=== PATIENT | male | born 1970 | race Caucasian/White ===

== ENCOUNTER 2018-08-28 22:58 | Inpatient (IN) | payer MEDICAID ==
[~2018-08-28] VITALS: Ht 172.7 cm; Wt 69.0 kg
[~2018-08-28 22:58] MED LIST: stool softener; xanax
--- NOTE | 2018-08-28 23:11 | NUR ---
ASSESSMENT MADE. PA AT BEDSIDE. ASSISTED FOR RECTAL EXAM.
[2018-08-28] MEDS ORDERED: OMNIPAQUE 350 MG/ML, 100ML BOTTLE ONE (23:18)
[2018-08-28] MEDS ORDERED: HYDROmorphone 1 MG/ML, 1ML IV ONE (23:30)
[2018-08-28] MEDS ORDERED: HYDROmorphone 1 MG/ML, 1ML ONE (23:34)
[2018-08-28 23:45] LABS: ALANINE AMINOTRANSFERASE 16 U/L (12-78); ALBUMIN 3.1 g/dL (3.4-5.0); ANION GAP 7 mmol/L (5-15); CALCIUM 8.3 mg/dL (8.5-10.1); CHLORIDE 110 mmol/L (98-107)
[2018-08-28 23:48] LABS: ALKALINE PHOSPHATASE 80 U/L (45-117); BILIRUBIN,TOTAL 0.4 mg/dL (0.2-1.0); CREATININE 0.98 mg/dL (0.7-1.3); TOTAL PROTEIN 7.1 g/dL (6.4-8.2)
[2018-08-29 00:33] LABS: BASOPHILS # (AUTO) 0.05 x10^3/uL (0-0.1); BASOPHILS % (AUTO) 0 % (0-1); EOSINOPHILS # (AUTO) 0.03 x10^3/uL (0-0.4); EOSINOPHILS % (AUTO) 0 % (1-7); LYMPHOCYTES # (AUTO) 2.02 x10^3/uL (1-3.4); LYMPHOCYTES % (AUTO) 14 % (22-44); MD NO; MEAN CORPUSCULAR HEMOGLOBIN 27.3 pg (27.5-34.5); MEAN CORPUSCULAR HGB CONC 33.6 g/dL (33.2-36.2); MEAN CORPUSCULAR VOLUME 81.1 fL (81-97); MEAN PLATELET VOLUME 8.9 fL (7.4-10.4); MONOCYTES # (AUTO) 1.03 x10^3/uL (0.2-0.8); MONOCYTES % (AUTO) 7 % (2-9); NEUTROPHILS # (AUTO) 11.25 x10^3/uL (1.8-6.8); NEUTROPHILS % (AUTO) 78 % (42-75); PLATELET COUNT 215 x10^3/uL (130-400); RED BLOOD COUNT 4.04 x10^6/uL (4.38-5.82); RED CELL DISTRIBUTION WIDTH 18.4 % (9.4-14.8)
--- NOTE | 2018-08-29 00:33 | NUR ---
CALLED LAB TO CHECK ON CBC. THEY STATE IT IS RUNNING CURRENTLY.
[2018-08-29] MEDS ORDERED: HYDROmorphone 1 MG/ML, 1ML IV ONE (01:30)
[2018-08-29] MEDS ORDERED: HYDROmorphone 1 MG/ML, 1ML ONE (01:31)
--- NOTE | 2018-08-29 01:43 | NUR ---
PT UPSET ABOUT NPO STATUS AT THIS TIME. PT PROVIDED WITH MOUTH SWABS.
[2018-08-29] MEDS ORDERED: PIPERACILLIN/TAZO/PMX 3.375GM 50 ML IV ONE (02:00)
[2018-08-29] MEDS ORDERED: hydrALAzine 20 MG/ML, 1ML IVPush PRN (02:30)
[2018-08-29] MEDS ORDERED: CYCLOBENZAPRINE 10 MG TABLET PO PRN (02:30)
[2018-08-29] MEDS: NICOTINE 7 MG/24 HR PATCH.TD24 TD SCH (02:30)
[2018-08-29] MEDS ORDERED: ONDANSETRON 2MG/ML, 2ML IVPush PRN (02:30)
[2018-08-29] MEDS ORDERED: ONDANSETRON ODT 4 MG PO PRN (02:30)
[2018-08-29] MEDS ORDERED: PROMETHAZINE 25 MG/ML, 1ML IM PRN (02:30)
[2018-08-29] MEDS ORDERED: ACETAMINOPHEN 325 MG TABLET PO PRN (02:30)
[2018-08-29] MEDS ORDERED: OXYcodone/APAP 5/325MG TABLET PO PRN (02:30)
[2018-08-29] MEDS ORDERED: PIPERACILLIN/TAZO/PMX 3.375GM 50 ML ONE (02:31)
[2018-08-29] MEDS: SODIUM CHLORIDE 0.9% 1,000 ML IV SCH ×3 (02:43→22:04)
[2018-08-29 02:54] LABS: HEMOGLOBIN A1C 5.5 % (4.2-6.3)
[2018-08-29 02:58] LABS: FREE T4 (FREE THYROXINE) 1.37 ng/dL (0.76-1.46); THYROID STIMULATING HORMONE 4.24 mIU/L (0.358-3.740)
[2018-08-29 03:03] VITALS: BP 125/84
[2018-08-29] MEDS ORDERED: MORPHINE SULFATE 4 MG/ML, 1ML ONE (04:12)
[2018-08-29] MEDS: morphine SULFATE 10 MG/ML, 1ML IVPush PRN ×2 (04:15→06:26)
[2018-08-29] MEDS: PIPERACILLIN/TAZO/PMX 3.375GM 50 ML IV SCH ×3 (08:35→22:02)
[2018-08-29 08:37] VITALS: BP 118/60
[2018-08-29] MEDS: OxyconTIN ER 10 MG TAB.ER PO SCH ×2 (10:24→22:02)
[2018-08-29] MEDS: HYDROmorphone 2 MG/ML, 1ML IV PRN ×2 (12:37→19:41)
[2018-08-29 13:27] VITALS: BP 121/57
[2018-08-29 19:31] VITALS: BP 133/67
[2018-08-29] MEDS: ALPRazolam 1MG TABLET PO PRN (22:58)
[2018-08-30] MEDS: HYDROmorphone 2 MG/ML, 1ML IV PRN ×5 (01:46→19:57)
[2018-08-30 02:11] VITALS: BP 115/55
[2018-08-30] MEDS: NICOTINE 7 MG/24 HR PATCH.TD24 TD SCH (02:30)
[2018-08-30] MEDS: PIPERACILLIN/TAZO/PMX 3.375GM 50 ML IV SCH ×4 (03:59→21:24)
[2018-08-30 05:15] LABS: ALBUMIN 2.6 g/dL (3.4-5.0); ANION GAP 7 mmol/L (5-15); BASOPHILS # (AUTO) 0.02 x10^3/uL (0-0.1); BASOPHILS % (AUTO) 0 % (0-1); CALCIUM 7.8 mg/dL (8.5-10.1); CHLORIDE 108 mmol/L (98-107); EOSINOPHILS # (AUTO) 0.13 x10^3/uL (0-0.4); EOSINOPHILS % (AUTO) 2 % (1-7); LYMPHOCYTES # (AUTO) 1.65 x10^3/uL (1-3.4); LYMPHOCYTES % (AUTO) 18 % (22-44); MD NO; MEAN CORPUSCULAR HEMOGLOBIN 26.6 pg (27.5-34.5); MEAN CORPUSCULAR HGB CONC 32.4 g/dL (33.2-36.2); MEAN CORPUSCULAR VOLUME 82.1 fL (81-97); MEAN PLATELET VOLUME 8.9 fL (7.4-10.4); MONOCYTES # (AUTO) 0.79 x10^3/uL (0.2-0.8); MONOCYTES % (AUTO) 9 % (2-9); NEUTROPHILS # (AUTO) 6.54 x10^3/uL (1.8-6.8); NEUTROPHILS % (AUTO) 72 % (42-75); PLATELET COUNT 223 x10^3/uL (130-400); RED BLOOD COUNT 3.47 x10^6/uL (4.38-5.82); RED CELL DISTRIBUTION WIDTH 18.8 % (9.4-14.8)
[2018-08-30 05:19] LABS: ALANINE AMINOTRANSFERASE 14 U/L (12-78); ALKALINE PHOSPHATASE 70 U/L (45-117); BILIRUBIN,TOTAL 0.4 mg/dL (0.2-1.0); CHOL/HDL RATIO 4.2; CHOLESTEROL, TOTAL 126 mg/dL (140-239); CREATININE 0.83 mg/dL (0.7-1.3); HDL CHOL % 24 % (26-37); HDL CHOLESTEROL (DIRECT) 30 mg/dL (40-60); TRIGLYCERIDES 76 mg/dL (50-200); VLDL CHOLESTEROL 15 mg/dL (0-25)
[2018-08-30 05:20] LABS: LDL CHOLESTEROL,CALCULATED 81 mg/dL (54-169); LDL/HDL RATIO 2.7 (0.5-3.0)
[2018-08-30 07:55] VITALS: BP 103/57
[2018-08-30] MEDS: OxyconTIN ER 10 MG TAB.ER PO SCH ×2 (10:15→21:24)
[2018-08-30] MEDS: DOCUSATE 100 MG CAPSULE PO PRN ×2 (14:51→22:50)
[2018-08-30 15:08] VITALS: BP 112/69
[2018-08-30 15:29] LABS: MICROSCOPIC NOT IND
[2018-08-30 15:36] LABS: CULTURE INDICATED? NO
[2018-08-30 20:31] VITALS: BP 108/64
[2018-08-30] MEDS: ALPRazolam 1MG TABLET PO PRN (22:50)
[2018-08-31] MEDS: HYDROmorphone 2 MG/ML, 1ML IV PRN ×5 (00:46→15:04)
[2018-08-31 02:21] VITALS: BP 112/64
[2018-08-31] MEDS: NICOTINE 7 MG/24 HR PATCH.TD24 TD SCH (02:30)
[2018-08-31] MEDS: PIPERACILLIN/TAZO/PMX 3.375GM 50 ML IV SCH ×2 (04:05→12:13)
[2018-08-31 07:19] VITALS: BP 105/62
[2018-08-31] MEDS: OxyconTIN ER 10 MG TAB.ER PO SCH (09:57)
[2018-08-31 12:15] VITALS: BP 112/69
[2018-08-31] MEDS ORDERED: OXYC5TAB3 PO (13:54)
== END 2018-08-31 16:29 | disposition home or self-care (01) | DRG 394 ==
LOC: ED 23:37 → EDIP 08-29 02:12 → 3NW 08-29 02:52 → DCLOUNGE 08-31 16:20
PROVIDERS: ADMIT Internal Medicine; ATTEND Internal Medicine
DX: K61.0 Anal abscess (principal); E44.0 Moderate protein-calorie malnutrition; Z68.23 Body mass index [BMI] 23.0-23.9, adult; F12.90 Cannabis use, unspecified, uncomplicated; F17.210 Nicotine dependence, cigarettes, uncomplicated; G47.00 Insomnia, unspecified; K64.9 Unspecified hemorrhoids; R33.9 Retention of urine, unspecified
CPT/HCPCS: 36415; 72193; 80053; 80061; 81003; 83036; 83735; 84439; 84443; 85025; 87040; 96365; 96367; 96375; 96376; G0378; J1170; J2543; Q9967; J2270; J7030

== ENCOUNTER 2018-09-03 18:20 | Emergency (ER) | payer MEDICAID ==
[~2018-09-03] VITALS: Ht 172.7 cm; Wt 70.0 kg
[~2018-09-03 18:20] MED LIST changes: +OXYC5TAB3 PO
[2018-09-03] MEDS ORDERED: ONDANSETRON 2MG/ML, 2ML ONE (18:27)
[2018-09-03] MEDS ORDERED: HYDROmorphone 1 MG/ML, 1ML ONE (18:29)
[2018-09-03] MEDS ORDERED: HYDROmorphone 2 MG/ML, 1ML IVPush PRN (18:30)
[2018-09-03] MEDS ORDERED: SODIUM CHLORIDE FLUSH 10ML SYR IVF ONE (18:30)
[2018-09-03] MEDS ORDERED: ONDANSETRON 2MG/ML, 2ML IVPush ONE (18:30)
[2018-09-03 18:52] LABS: BASOPHILS # (AUTO) 0.02 x10^3/uL (0-0.1); BASOPHILS % (AUTO) 0 % (0-1); EOSINOPHILS % (AUTO) 1 % (1-7); LYMPHOCYTES # (AUTO) 0.81 x10^3/uL (1-3.4); LYMPHOCYTES % (AUTO) 8 % (22-44); MD SCAN; MEAN CORPUSCULAR HEMOGLOBIN 26.5 pg (27.5-34.5); MEAN CORPUSCULAR HGB CONC 32.7 g/dL (33.2-36.2); MEAN CORPUSCULAR VOLUME 81.1 fL (81-97); MEAN PLATELET VOLUME 8.4 fL (7.4-10.4); MONOCYTES # (AUTO) 0.61 x10^3/uL (0.2-0.8); MONOCYTES % (AUTO) 6 % (2-9); NEUTROPHILS # (AUTO) 8.89 x10^3/uL (1.8-6.8); NEUTROPHILS % (AUTO) 85 % (42-75); PLATELET COUNT 363 x10^3/uL (130-400); RED BLOOD COUNT 3.74 x10^6/uL (4.38-5.82); RED CELL DISTRIBUTION WIDTH 18.6 % (9.4-14.8)
[2018-09-03 18:54] LABS: INTERNATIONAL NORMALIZED RATIO 1.01 (0.93-1.1); PROTHROMBIN TIME 10.6 Seconds (9.6-11.5)
[2018-09-03 18:57] LABS: ALANINE AMINOTRANSFERASE 28 U/L (12-78); ALBUMIN 2.9 g/dL (3.4-5.0); ANION GAP 9 mmol/L (5-15); CALCIUM 8.3 mg/dL (8.5-10.1); CHLORIDE 108 mmol/L (98-107); CREATININE 1.02 mg/dL (0.7-1.3)
[2018-09-03 19:00] LABS: ALKALINE PHOSPHATASE 77 U/L (45-117); BILIRUBIN,TOTAL 0.2 mg/dL (0.2-1.0)
[2018-09-03] MEDS ORDERED: SODIUM CHLORIDE 0.9%, 500ML IVBOLUS ONE (19:30)
--- NOTE | 2018-09-03 19:31 | NUR ---
pt to ed for severe abd pain following hemorrhoid removal 8 days ago, worse since today. iv established [employer] and pt given 6mg morphine and 4mg zofran. pain down from 10/10 to 6/10 upon arrival. connected to all monitors. vss. md assessment complete. labs drawn and resulted. all results back at this time. chart up for recheck.
[2018-09-03 20:11] VITALS: BP 98/47
--- NOTE | 2018-09-03 20:11 | NUR ---
all results back at this time. vss. new orders received.
[2018-09-03] MEDS ORDERED: OXYcodone/APAP 10/325MG TABLET ONE (20:52)
[2018-09-03] MEDS ORDERED: KETOROLAC 30 MG/1 ML ONE (20:52)
[2018-09-03] MEDS ORDERED: OXYcodone/APAP 10/325MG TABLET PO ONE (21:00)
[2018-09-03] MEDS ORDERED: KETOROLAC 30 MG/1 ML IVPush ONE (21:00)
== END 2018-09-03 21:06 | disposition home or self-care (01) ==
LOC: ED 19:44
DX: K62.5 Hemorrhage of anus and rectum (principal); R42 Dizziness and giddiness
CPT/HCPCS: 36415; 74018; 80053; 85025; 85610; 86850; 86900; 96361; 96374; 96375; 99284; J1170; J1885; J2405; J7040

== ENCOUNTER 2018-09-16 16:18 | Emergency (ER) | payer MEDICAID ==
[~2018-09-16] VITALS: Ht 172.7 cm; Wt 73.0 kg
[2018-09-16] MEDS ORDERED: HYDROcodone/APAP 10/325 MG TABLET ONE (17:17)
--- NOTE | 2018-09-16 17:25 | NUR ---
NOTED PT UP AMBULATORY IN THE ROOM WO APPERANT PAIN TALKING ON THE PHONE
[2018-09-16] MEDS ORDERED: HYDROcodone/APAP 10/325 MG TABLET PO ONE (17:30)
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
--- NOTE | 2018-09-16 17:39 | NUR ---
PT PROVIDED 2 CUPS OF JUICE
[2018-09-16 17:43] VITALS: BP 121/74
== END 2018-09-16 17:46 | disposition home or self-care (01) ==
LOC: ED 17:31
DX: K64.4 Residual hemorrhoidal skin tags (principal); F17.200 Nicotine dependence, unspecified, uncomplicated
CPT/HCPCS: 99283